=== PATIENT | male | born 1955 | race Caucasian/White ===

== ENCOUNTER 2018-12-13 09:38 | Emergency (ER) | payer OTHER ==
[~2018-12-13] VITALS: Ht 152.4 cm; Wt 69.9 kg
[~2018-12-13 09:38] MED LIST: ACET500C5 PO; HYDR25TA6 PO
[2018-12-13 09:43] VITALS: Ht 152.4 cm; Wt 69.9 kg
[2018-12-13 13:23] VITALS: BP 135/59; PULSE 68; RESP 18
== END 2018-12-13 13:36 | disposition home or self-care (01) ==
LOC: E/R 09:38
DX: E13.621 Other specified diabetes mellitus with foot ulcer (principal); L97.511 Non-pressure chronic ulcer of other part of right foot limited to breakdown of skin; I10 Essential (primary) hypertension
CPT/HCPCS: 96372; 99284; J1885